=== PATIENT | male | born 1960 | race Caucasian/White ===

== ENCOUNTER → 2016-07-05 | Outpatient (CLI) | payer BC ==
[~2016-07-05] MED LIST: AMBIEN CR 12.12.5 MG PO; ATIVAN 0.50.5 MG/TAB PO; CIPRO 500MG TA500 MG PO; COLACE 100100 MG/CAP PO; MULTIPLE VITAMI1 CAP PO; NORCO 325 MG-7.1 TAB PO; PERCOCET 325 MG1 TA2 PO; PROZAC 20MG20 MG PO; XARELTO15 MG PO
== END ==
LOC: COL.RAD 07:51
DX: M25.552 Pain in left hip (principal)
CPT/HCPCS: J3301; Q9967

== ENCOUNTER → 2016-10-15 | Outpatient (CLI) | payer OTHER | LOC: COL.RAD 08:00 | DX: M25.552 Pain in left hip (principal) | CPT/HCPCS: J3301 ==